=== PATIENT | female | born 1950 | race African-American/Black ===

== ENCOUNTER 2021-02-01 15:09 | Outpatient (REF) | payer MEDICARE, SELFPAY ==
[2021-02-01 16:29] LABS: Anion Gap 14 (12-20); Blood Urea Nitrogen 15 mg/dL (9-16); Carbon Dioxide 26 mmol/L (22-29); Chloride 106 mmol/L (96-108); Estimated Glomerular Filt Rate 45; Glucose Random 99 mg/dL (60-115); Potassium 4.6 mmol/L (3.3-5.1); Sodium 141 mmol/L (135-145)
[2021-02-01 16:47] LABS: T4 Thyroxine 8.1 ug/dL (4.5-12.0); Thyroid Stimulating Hormone 2.82 uIU/mL (0.32-4.0)
[2021-02-01 19:01] LABS: Folate 7.2 ng/mL (> or = 4.0); Vitamin B12 327 pg/mL (200-900)
== END 2021-02-01 15:10 | disposition home or self-care (01) ==
LOC: HO.LAB 15:09
PROVIDERS: Visit Provider Psychiatry & Neurology Neurology
DX: G30.9 Alzheimer's disease, unspecified (principal)
CPT/HCPCS: 36415; 80051; 82565; 82607; 82746; 82947; 84436; 84443; 84520